=== PATIENT | female | born 1975 | race Caucasian/White ===

== ENCOUNTER 2016-10-10 12:38 | Emergency (ER) | payer BC ==
[~2016-10-10] VITALS: Ht 160 cm; Wt 68.9 kg
[~2016-10-10 12:38] MED LIST: CETI10TA17 PO; DESV50TA PO; OMEP-10 PO; [UNRECOGNIZED DRUG - OTHER]
--- OUTSIDE RECORDS SUMMARY | 2016-10-10 12:42 | XMS REPORT ---
Author Author TOSIN WILEY Organization [employer] Address Unknown Phone Unavailable Care Team Providers Care Ground Defence Officer Name Role Phone INEZ TOSIN CP Unavailable Allergies, Adverse Reactions, Alerts Substance Reaction Event Type SULFA Info Not Available Drug Allergy Vicodin itch Drug Allergy Tramadol HCl itching Drug Allergy Penicillin V Potassium Info Not Available Drug Allergy Keflex Info Not Available Drug Allergy Bactrim vomiting Drug Allergy Problems Problem Type Condition Code Onset Dates Condition Status Assessment GERD (gastroesophageal reflux disease) K21.9 Active Assessment Hyperlipemia E78.5 Active Assessment Hypertension I10 Active Assessment Sinus tachycardia R00.0 Active Problem Unspecified sleep disturbance 780.50 Active Problem Cervicalgia 723.1 Active Problem Counseling on substance use and abuse V65.42 Active Problem Elevated blood pressure reading without diagnosis of hypertension 796.2 Active Problem Unspecified contraceptive management V25.9 Active Problem General counseling for initiation of other contraceptive measures V25.02 Active Problem Chronic pain syndrome 338.4 Active Problem Cervicalgia M54.2 Active Problem Essential hypertension 401.9 Active Problem Hyperlipemia E78.5 Active Problem Environmental allergies Z91.09 Active Problem Lumbago 724.2 Active Problem Other abnormal glucose 790.29 Active Problem Hypertension I10 Active Problem Need for prophylactic vaccination and inoculation, Influenza V04.81 Active Problem HTN (hypertension) I10 Active Problem Lumbago M54.5 Active Problem Tachycardia R00.0 Active Problem GERD (gastroesophageal reflux disease) K21.9 Active Problem Special screening examination, human papillomavirus [HPV] V73.81 Active Problem Other general counseling and advice for contraceptive management V25.09 Active Problem Esophageal reflux 530.81 Active Problem Unspecified myalgia and myositis 729.1 Active Problem Routine gynecological examination V72.31 Active Problem Unspecified breast screening V76.10 Active Problem Nondependent tobacco use disorder 305.1 Active Problem Screening for malignant neoplasm of the cervix V76.2 Active Medications Medication Code System Code Instructions Start Date End Date Status Dosage Omeprazole [facility] [address]-21 20 MG Orally 2 times a day Jul 08, 2015 1 capsule Depo-Provera Contraceptive [facility] 0 150 mg/mL 1 mL intramuscularly every 3 months Jul 02, 2014 1 mL by Intramuscular route every [address] [facility] [address]-11 10 mg oral 2 times a day Oct 26, 2014 1 Tablet Zyrtec Allergy [facility] [address]-77 10 MG Orally Once a day Jul 30, 2015 November 27, 2015 1 capsule as needed Savella [facility] [address]-35 50 MG Orally Twice a day May 06, 2015 Sep 03, [address] [facility] [address]-33 not defined Lisinopril-Hydrochlorothiazide [facility] 42969440244 20-12.5 MG TAKE ONE TABLET BY MOUTH DAILY Ibuprofen ND 0 not defined Hydrocodone-Acetaminophen [facility] [address]-93 10-325 MG Orally every 6 hrs 1 tablet as needed Cymbalta [facility] [address]-11 30 MG Orally Twice a day Jul 30, 2015 1 capsule Procedures Procedure Coding System Code Date Office Visit, New Pt., Level 4 CPT-4 66200 Aug 02, 2015 Vital Signs Date/Time: Aug 02, 2015 Temperature 97.6 F Weight 146.4 lbs Height 63 in BMI 25.93 Index Blood Pressure Diastolic 88 mmHg Blood Pressure Systolic 124 mmHg Cardiac Monitoring Heart Rate 110 bpm Results No Known Results Summary Purpose [employer] Submission
--- NOTE | 2016-10-10 12:52 | ED Integumentary General ---
General Chief Complaint: Allergic Reaction Stated Complaint: HIVES Source: patient Exam Limitations: no limitations History of Present Illness Time seen by provider: 12:50 Initial Comments To ER with intensely pruritic hives to both extremities and her torso that began yesterday. She denies any known cause. She was seen at [facility] urgent care this morning and given 20 mg of Pepcid orally, 50 mg of Benadryl orally and a shot of 10 mg of Decadron. She also had 25 mg of Benadryl at 7 a.m. this morning. She did start Wellbutrin XL on September 22 and gemfibrozil on 10/03/16. Timing/Duration: constant Severity: moderate Associated Symptoms: hives Allergies and Home Medications Allergies Coded Allergies: Clarithromycin (Unverified Adverse Reaction, VOMITING, 02/09/10) Uncoded Allergies: KFLEX (Allergy, Mild, RASH, 02/09/10) PENICILLIN (Allergy, 02/09/10) Home Medications (Reported) Cetirizine Hcl 10 Mg Tablet 10 MG PO DAILY (Reported) Desvenlafaxine Succinate 50 Mg Tab.sr.24h 50 MG PO (Reported) Omeprazole 20 Mg Capsule.dr 20 MG PO DAILY (Reported) Prednisone 20 Mg Tab #4 20 MG PO DAILY Prescribed by: MG FATIMA on 10/10/16 1325 Constitutional: see HPI EENTM: see HPI Respiratory: no symptoms reported Cardiovascular: no symptoms reported Gastrointestinal: vomiting (times one this morning) Genitourinary: no symptoms reported Musculoskeletal: no symptoms reported Skin: see HPI Psychiatric/Neurological: No Symptoms Reported Endocrine: No Symptoms Reported Past Nkuztrp-Xtdlzk-Zueuzt Hx Patient Social History Alcohol Use: Denies Use Recreational Drug Use: No Smoking Status: Current Everyday Smoker Type Used: Cigarettes Recent Foreign Travel: No Contact w/Someone Who Travel: No Recent Hopitalizations: No Physical Abuse Screen: No Sexual Abuse: No Surgeries HX Surgeries: No (wisdom teeth removal) Cardiovascular Hx Cardiac Disorders: No Neurological Hx Neurological Disorders: No Reproductive System Hx Reproductive Disorders: No Musculoskeletal Hx Musculoskeletal Disorders: No Endocrine Hx Endocrine Disorders: No HEENT HX ENT Disorders: No Blood Transfusions Hx Blood Disorders: No Physical Exam Vital Signs Vital Sign - Last 12Hours 10/10/16 12:43 Temp 98.1 Pulse 127 Resp 20 B/P 121/88 Pulse Ox 100 O2 Delivery Room Air Capillary Refill : General Appearance: no apparent distress HEENT: PERRL/EOMI normal ENT inspection TMs normal pharynx normal other (she did initially have swelling of her lips upon presentation to [facility] urgent care but she states that the swelling has improved although it's not back to normal.) Neck: non-tender full range of motion Cardiovascular: no murmur tachycardia Respiratory: normal breath sounds no respiratory distress no accessory muscle use Gastrointestinal: normal bowel sounds non tender soft Neurologic/Psychiatric: alert normal mood/affect oriented x 3 Skin: normal color warm/dry Skin Problem Location: generalized Skin Problem Character: urticarial Progress/Results/Core Measures Results/Orders My Orders Orders-MG FATIMA APRN Saline Lock/Iv-Start (10/10/16 12:49) Ns Iv 1000 Ml (Sodium Chloride 0.9%) (10/10/16 13:00) Methylprednisolone Sod Succ (Solu-Medrol (10/10/16 13:00) Lorazepam Injection (Ativan Injection) (10/10/16 13:30) Medications Given in ED Current Medications Medications Dose Ordered Sig/Cele Route Start Time Stop Time Status Last Admin Dose Admin Lorazepam 1 mg ONCE ONCE IVP 10/10/16 13:30 10/10/16 13:31 DC 10/10/16 13:45 1 MG Methylprednisolone Sodium Succinate 62.5 mg ONCE ONCE IVP 10/10/16 13:00 10/10/16 13:01 DC 10/10/16 12:56 62.5 MG Vital Signs/I&O Vital Sign - Last 12Hours 10/10/16 12:43 Temp 98.1 Pulse 127 Resp 20 B/P 121/88 Pulse Ox 100 O2 Delivery Room Air Departure Impression Impression: Primary Impression: Allergic reaction Qualified Code: T78.40XA - Allergy, unspecified, initial encounter Disposition: HOME, SELF-CARE Condition: Stable Departure-Patient Inst. Decision time for Depature: 13:23 Referrals: [facility] (PCP/Family) Primary Care Physician Patient Instructions: Anaphylaxis (DC), Skin Rash (DC) Add. Discharge Instructions: 1. Follow-up with your doctor next week 2. One Benadryl every 4 hours for the next 24 hours. Take steroids as directed starting this evening. 3. Stop the gemfibrozil. I cannot guarantee that this is responsible for your allergic reaction but it is the only thing that has changed recently, so stopping it would be reasonable. 4. Return to ER for any worsening All discharge instructions reviewed with patient and/or family. Voiced understanding. Scripts Prednisone 20 Mg Tab20 Mg PO DAILY #4 TAB Prov:MG FATIMA APRN 10/10/16 MG FATIMA APRN Oct 10, 2016 12:52
[2016-10-10] MEDS ORDERED: NS IV 1000 ML 1,000 ML IV SCH (13:00)
[2016-10-10] MEDS ORDERED: methylPREDNISolone 125 MG (Solu-MEDROL) VIAL IVP ONE (13:00)
[2016-10-10] MEDS ORDERED: PRD20T PO (13:25)
[2016-10-10] MEDS ORDERED: LORazepam INJ 2 MG/ML (ATIVAN) VIAL IVP ONE (13:30)
[2016-10-10 14:02] VITALS: BP 133/89
[2016-10-11] MEDS ORDERED: PRD20T PO (22:37)
[2016-10-11] MEDS ORDERED: HYDR-700 PO (22:37)
== END 2016-10-10 14:02 | disposition home or self-care (01) ==
LOC: EDUNIT# 12:38 → ER 12:39
DX: T78.40XA Allergy, unspecified, initial encounter (principal); F17.210 Nicotine dependence, cigarettes, uncomplicated
CPT/HCPCS: 96361; 96374; 96375

== ENCOUNTER 2016-10-11 21:06 | Emergency (ER) | payer BC ==
[~2016-10-11] VITALS: Ht 167.6 cm; Wt 77.1 kg
[~2016-10-11 21:06] MED LIST changes: +PRD20T PO
[2016-10-11] MEDS ORDERED: FAMOTIDINE 20MG/2ML IV (PEPCID) IV STA (22:26)
[2016-10-11] MEDS ORDERED: FAMOTIDINE 20 MG (PEPCID) TABLET PO STA (22:27)
[2016-10-11] MEDS ORDERED: hydrOXYzine (VISTARIL) 25 MG CAP PO ONE (22:30)
[2016-10-11] MEDS ORDERED: predniSONE 20 MG TAB PO ONE (22:30)
--- NOTE | 2016-10-11 22:36 | ED Integumentary General ---
General Chief Complaint: Allergic Reaction Stated Complaint: ALLERGIC REACTION TO MEDS Nursing Triage Note: c/o hives/itching after taking wellbutrin. denies being soa Source: patient Exam Limitations: no limitations History of Present Illness Time seen by provider: 22:15 Initial Comments Here with report of hives and itching after taking her Wellbutrin today. She was seen yesterday for the same. She had recently been started on gemfibrozil and Wellbutrin but believe that the gemfibrozil was the culprit. She stopped taking that yesterday. She was doing a little better last night after steroids but today after taking her Wellbutrin she had increasing hives that are now on her arms, legs, torso and hands and feet. States the itching is quite intense. She is currently on prednisone 20 mg daily. Denies breathing problems, nausea , vomiting or abdominal pain. Timing/Duration: yesterday, getting worse, changing over time Severity: moderate Location: torso, hands, feet Possible Cause: exposure to allergen Associated Symptoms: No fever, No flushing, hives rash Allergies and Home Medications Allergies Coded Allergies: Clarithromycin (Unverified Adverse Reaction, VOMITING, 02/09/10) Uncoded Allergies: KFLEX (Allergy, Mild, RASH, 02/09/10) PENICILLIN (Allergy, 02/09/10) Home Medications (Reported) Cetirizine Hcl 10 Mg Tablet 10 MG PO DAILY (Reported) Desvenlafaxine Succinate 50 Mg Tab.sr.24h 50 MG PO (Reported) Omeprazole 20 Mg Capsule.dr 20 MG PO DAILY (Reported) Prednisone 20 Mg Tab #4 20 MG PO DAILY Prescribed by: MG FATIMA on 10/10/16 1325 Constitutional: see HPINo chills, No fever EENTM: no symptoms reportedNo mouth swelling, No nose congestion, No throat pain, No throat swelling Respiratory: no symptoms reported Cardiovascular: no symptoms reported Gastrointestinal: no symptoms reported Musculoskeletal: no symptoms reported Skin: see HPI pruritus rash Past Uwhoeuc-Aiyaus-Qcxofc Hx Patient Social History Alcohol Use: Denies Use Recreational Drug Use: No Smoking Status: Current Someday Smoker Type Used: Cigarettes Recent Foreign Travel: No Contact w/Someone Who Travel: No Recent Infectious Disease Expo: No Recent Hopitalizations: No Physical Abuse Screen: No Sexual Abuse: No Immunizations Up To Date Tetanus Booster (TDap): Unknown Seasonal Allergies Seasonal Allergies: Yes Surgeries HX Surgeries: No (wisdom teeth removal) Respiratory Hx Respiratory Disorders: No Cardiovascular Hx Cardiac Disorders: No Neurological Hx Neurological Disorders: No Reproductive System : No Hx Reproductive Disorders: No Genitourinary Hx Genitourinary Disorders: No Gastrointestinal Hx Gastrointestinal Disorders: No Musculoskeletal Hx Musculoskeletal Disorders: Yes Musculoskeletal Disorders: Fibromyalgia Endocrine Hx Endocrine Disorders: No HEENT HX ENT Disorders: No Cancer Hx Cancer: No Psychosocial Hx Psychiatric Problems: Yes Behavioral Health Disorders: Depression Integumentary HX Skin/Integumentary Disorder: No Blood Transfusions Hx Blood Disorders: No Adverse Reaction to a Blood Tr: No Reviewed Nursing Assessment Reviewed/Agree w Nursing PMH: Yes Family Medical History Significant Family History: No Pertinent Family Hx Physical Exam Vital Signs Vital Sign - Last 12Hours 10/11/16 22:17 Temp 97.1 Pulse 92 Resp 16 B/P 141/90 Pulse Ox 98 O2 Delivery Room Air Capillary Refill : Less Than 3 Seconds General Appearance: WD/WN no apparent distress HEENT: PERRL/EOMI pharynx normal Neck: full range of motion supple Cardiovascular: regular rate, rhythm no murmur Respiratory: lungs clear normal breath sounds Gastrointestinal: non tender soft Extremities: normal range of motion non-tender Neurologic/Psychiatric: alert oriented x 3 Skin: warm/dry Skin Problem Location: upper extremities, torso, lower extremities Skin Problem Character: patchy, urticarial Progress/Results/Core Measures Results/Orders My Orders Orders-ALCIDES SOLIS MD Hydroxyzine Oral (Vistaril Capsule) (10/11/16 22:30) Prednisone Tablet (Deltasone Tablet) (10/11/16 22:30) Famotidine Injection (Pepcid Injection) (10/11/16 22:26) Famotidine Tablet (Pepcid Tablet) (10/11/16 22:27) Vital Signs/I&O Vital Sign - Last 12Hours 10/11/16 22:17 Temp 97.1 Pulse 92 Resp 16 B/P 141/90 Pulse Ox 98 O2 Delivery Room Air Blood Pressure Mean: 107 Progress Note : Progress Note Seen and evaluated. Prednisone 40 mg by mouth. Hydroxyzine 25 mg by mouth and Pepcid 20 mg by mouth given. Discharged home with return precautions. Patient verbalize understanding instructions and agreement with plan. Departure Impression Impression: Primary Impression: Allergic reaction Qualified Code: T78.40XD - Allergy, unspecified, subsequent encounter Disposition: 01 HOME, SELF-CARE Condition: Stable Departure-Patient Inst. Decision time for Depature: 22:35 Referrals: [facility] (PCP/Family) Primary Care Physician Patient Instructions: Drug Allergy Add. Discharge Instructions: All discharge instructions reviewed with patient and/or family. Voiced understanding. Stop Wellbutrin. Follow-up with your Dr. in a few days for recheck. Return for worse pain, fever, vomiting, weakness, breathing problems or other concerns as needed. Take medication as directed. You should take Pepcid or the generic famotidine, 20 mg twice daily for the next 4-5 days and then as needed. Do not take hydroxyzine and Benadryl at the same time. Scripts Hydroxyzine HCl 25 Mg Pkteom95 Mg PO Q8H PRN ITCHING #20 TAB Ref 0 Prov:ALCIDES SOLIS MD 10/11/16 Prednisone 20 Mg Tab40 Mg PO DAILY #10 TAB Ref 0 Prov:ALCIDES SOLIS MD 10/11/16 Copy Copies To 1: NELSON VILLEGAS TIMOTHY D MD Oct 11, 2016 22:36
[2016-10-11] MEDS ORDERED: HYDR-700 PO (22:37)
[2016-10-11] MEDS ORDERED: PRD20T PO (22:37)
[2016-10-11 22:44] VITALS: BP 127/94
== END 2016-10-11 22:44 | disposition home or self-care (01) ==
LOC: EDUNIT# 21:06 → ER 21:09
DX: L50.9 Urticaria, unspecified (principal); T43.295A Adverse effect of other antidepressants, initial encounter; F17.210 Nicotine dependence, cigarettes, uncomplicated
CPT/HCPCS: 99283

== ENCOUNTER → 2016-10-26 | Outpatient (CLI) | payer BC ==
[~2016-10-26] MED LIST changes: +HYDR-700 PO
--- NOTE | 2016-10-28 09:08 | ECHOCARDIOGRAPHY REPORT ---
PROCEDURE PHYSICIAN: TOSIN WILEY DATE OF PROCEDURE: 10/26/2016 TWO DIMENSIONAL ECHOCARDIOGRAM REPORT PRIMARY PHYSICIAN: OTHER PHYSICIAN: REFERRING PHYSICIAN: Lesvia Drake APRN ORDERING PHYSICIAN: INDICATION FOR THE PROCEDURE: Tachycardia MEASUREMENTS DERIVED VALUES LV DIAMETER (LAX) NORMALS NORMALS Diastolic 4. (3.6-5.2) Eject. Fract. 60% (60%+/-6%) Systolic (2.3-3.9) Diastolic Vol. % Shortening (0.22-0.42) Systolic Vol. Aortic Root IVS THICKNESS Diastolic 1. (0.6-1.1) LVPW THICKNESS Diastolic 1. (0.6-1.1) LA DIAMETER Systolic 3.8 (2.1-3.7) FINDINGS: 1. Technical quality is good. 2. The left ventricle is normal in size with normal contractility. Systolic function appeared to be normal. Estimated ejection fraction 60%. 3. The left atrium is normal in size. No clot or thrombus were seen within the left atrium. 4. The right atrium and right ventricle are normal in size. No clot or thrombus were seen within the right side. 5. Mitral valve is normal in morphology with mild mitral regurgitation noted by color Doppler flow. No mitral valve prolapse. No mitral valve stenosis. 6. Aortic valve is trileaflet with normal opening and closing pattern. No significant aortic stenosis or regurgitation was seen. 7. Tricuspid valve is normal in morphology with mild tricuspid regurgitation noted by color Doppler flow. Doppler across tricuspid valve estimated pulmonary artery pressure of 38+ right atrial pressure. 8. Pulmonic valve is functioning normally. 9. No pericardial effusion. 10. Evaluation of the intraatrial septum showed increase of the thickness of the septum measuring up to 1 cm. CATRACHITA will be better for evaluation of the intraatrial septum. CONCLUSION: 1. Normal left ventricular size and systolic function. Estimated ejection fraction 60%. 2. Mild mitral and tricuspid regurgitation. 3. Incidental finding hypertrophy of the interatrial septum measuring up to 1 cm, CATRACHITA will be more accurate in evaluating the intraatrial septum. 4. Pulmonary hypertension with estimated pulmonary artery pressure of 45 mmHg Job ID: [id number] Dictated Date: 10/27/2016 17:07:51 Electronic Induction Hardener Date: 10/28/2016 09:02:28 / lawson
== END ==
LOC: CARD 08:31
PROVIDERS: ATTEND Internal Medicine Cardiovascular Disease
DX: R00.0 Tachycardia, unspecified (principal)
CPT/HCPCS: 93017; 93306

== ENCOUNTER → 2017-07-19 | Outpatient (CLI) | payer BC ==
--- NOTE | 2017-07-19 13:08 | Diagnostic Imaging Report ---
PROCEDURE: US abdomen complete. TECHNIQUE: Multiple real-time grayscale images were obtained over the abdomen in various projections. INDICATION: Abdominal pain. FINDINGS: The pancreas is largely obscured by bowel gas. The liver is fairly homogeneous with no focal lesion seen. The gallbladder has been removed. Hepatopetal flow in the portal vein is seen. The CBD is 4 mm in caliber. The right kidney is 11.2 cm and the left kidney is 11.2 cm in length. No hydronephrosis or focal lesion. The spleen is 10 cm in length, normal. The abdominal aorta and the IVC appear unremarkable. No ascites or fluid collection is seen in the abdomen. IMPRESSION: Unremarkable exam. Dictated by: Dictated on workstation # [id number]
== END ==
LOC: RAD 08:56
PROVIDERS: ATTEND Family Medicine
DX: R10.84 Generalized abdominal pain (principal)
CPT/HCPCS: 76700; 76705